=== PATIENT | female | born 1955 | race Caucasian/White ===

== ENCOUNTER 2017-02-26 08:04 | Inpatient (IN) | payer OTHER ==
[2017-02-26] MEDS ORDERED: THROMBIN (BOVINE) 20,000 UNIT VIAL TP ONE (08:23)
[2017-02-26] MEDS ORDERED: BUPIVACAINE 0.25% 30 ML SDV ONE (08:23)
[2017-02-26] MEDS ORDERED: ceFAZolin 1 GM VIAL ONE (08:24)
[2017-02-26] MEDS ORDERED: POLYMYXIN B SULFATE 500,000 UNIT/10 ML SYR IRR ONE ×2 (08:24→10:29)
[2017-02-26] MEDS ORDERED: BACITRACIN 50,000 UNITS/10 ML SYR IRR ONE ×2 (08:24→10:29)
[2017-02-26] MEDS ORDERED: HYDROmorphONE/DILAUDID 1 MG/ML INJ IVP ONE (08:35)
--- NOTE | 2017-02-26 08:35 | EDPHY ---
H & P Time Seen by Provider: 02/26/17 08:10 HPI/ROS: CHIEF COMPLAINT: Back pain, postop infection HISTORY OF PRESENT ILLNESS: 61-year-old female presents to the emergency department by private vehicle complaining of pain in her back and possible postoperative infection. The patient had a cyst removed from her lumbar spine [address] Ayala. She began having pain in her low back over last 2 days. She had a fever last night of 101. She saw Dr. Ayala this morning who is planning on taking her to the operating room for incision and drainage. She has breath or some preoperative paperwork. She had dinner last evening at 6 :00 p.m. and had water at 9:30 p.m.. She has been NPO all day today. She complains of severe pain in her back especially with movement. No abdominal pain. No vomiting. She did not take any medications and specifically no antipyretics today. No vomiting. No diarrhea. REVIEW OF SYSTEMS: Constitutional: Fever as above. Eyes: No double or blurry vision. ENT: No sore throat. Respiratory: No cough, no shortness of breath. Cardiac: No chest pain. Gastrointestinal: No abdominal pain, vomiting or diarrhea. Genitourinary: No dysuria. Musculoskeletal: Back pain as above. No neck pain. Skin: No rashes. Neurological: No headache. Past Medical/Surgical History: Cyst removal lumbar spine by Dr. Ayala January of 2017 Social History: and lives in [place] Smoking Status: Never smoked Physical Exam: General Appearance: Alert, moderate distress. Afebrile. Diaphoretic. 135/88 Eyes: Pupils equal and round. Extraocular motions are all intact. ENT: Mouth: Mucous membranes moist. Respiratory: No wheezing, rhonchi, or rales, lungs are clear to auscultation. Cardiovascular: Regular rate and rhythm. Tachycardic. Gastrointestinal: Abdomen is soft and nontender, no masses, no rebound or guarding, bowel sounds normal. Neurological: Alert and oriented x 3, cranial nerves II through XII grossly intact Skin: Patient has midline incision in lumbar spine with tamara present. There is surrounding redness and warmth. Diffusely tender to palpate. There is small purulent drainage on the bandage noted. Warm and dry, no rashes. Musculoskeletal: Tender to palpate along the lumbar spine over surgical incision. Nontender to palpate over thoracic or cervical spine. Her neck is supple. Extremities: Full range of motion and no peripheral edema. Psychiatric: Patient is oriented X 3, there is no agitation. Constitutional: Initial Vital Signs Temperature (C) 36.5 C 02/26/17 08:07 Heart Rate 116 H 02/26/17 08:07 Respiratory Rate 16 02/26/17 08:07 Blood Pressure 135/88 H 02/26/17 08:07 O2 Sat (%) 93 02/26/17 08:07 O2 Delivery Mode Room Air O2 (L/minute) 2 Allergies/Adverse Reactions: No Known Allergies Allergy (Unverified 02/26/17 08:06) Home Medications: Medication Instructions Recorded Atorvastatin Calcium [Lipitor 20 20 mg PO DAILY 02/26/17 mg (*)] Codeine/Butalbit/Acetamin/Caff 1 - 2 tab PO Q6 PRN 02/26/17 [Fioricet-Cod 80-18-321-40 Cap] Diazepam [Valium 5 MG (*)] 5 mg PO TID PRN 02/26/17 Escitalopram Oxalate [Lexapro] 20 mg PO DAILY 02/26/17 Herbals/Supplements -Info Only 1 ea PO DAILY 02/26/17 Hydrocodone/APAP 5/325 [Madison 1 - 2 tab PO Q6H PRN 02/26/17 5/325 (*)] Omeprazole [Prilosec 20 mg] 20 mg PO DAILY PRN 02/26/17 oxyCODONE/APAP 5/325 [Percocet 1 - 2 tab PO Q6H PRN 02/26/17 5/325 (*)] Medical Decision Making ED Course/Re-evaluation: 61-year-old female presents to the emergency department for laboratory studies and preop. She is scheduled for incision and drainage in the OR by Dr. Ayala at 9:00 a.m.. The patient was kept NPO. She was kept on a monitor. Patient was given 0.5 mg of IV Dilaudid. Dr. Ayala had ordered CBC, hemoglobin A1c, CRP and ESR. The patient is awaiting surgery at 9:00 a.m.. Differential Diagnosis: Including but not limited to sepsis, epidural abscess, cellulitis, wound infection - Data Points Laboratory Results: Laboratory Results 02/26/17 08:30 02/26/17 08:30 02/26/17 02/26/17 02/26/17 08:30 08:30 08:30 WBC 8.14 10^3/uL 10^3/uL (3.80-9.50) RBC 4.54 10^6/uL 10^6/uL (4.18-5.33) Hgb 14.7 g/dL g/dL (12.6-16.3) Hct 44.1 % % (38.0-47.0) MCV 97.1 fL fL (81.5-99.8) MCH 32.4 pg pg (27.9-34.1) MCHC 33.3 g/dL g/dL (32.4-36.7) RDW 12.1 % % (11.5-15.2) Plt Count 206 10^3/uL 10^3/uL (150-400) MPV 8.5 fL L fL (8.7-11.7) Neut % (Auto) 84.2 % H % (39.3-74.2) Lymph % (Auto) 9.7 % L % (15.0-45.0) Frederick % (Auto) 5.2 % % (4.5-13.0) Eos % (Auto) 0.2 % L % (0.6-7.6) Baso % (Auto) 0.2 % L % (0.3-1.7) Nucleat RBC Rel Count 0.0 % % (0.0-0.2) Absolute Neuts (auto) 6.85 10^3/uL H 10^3/uL (1.70-6.50) Absolute Lymphs (auto) 0.79 10^3/uL L 10^3/uL (1.00-3.00) Absolute Monos (auto) 0.42 10^3/uL 10^3/uL (0.30-0.80) Absolute Eos (auto) 0.02 10^3/uL L 10^3/uL (0.03-0.40) Absolute Basos (auto) 0.02 10^3/uL 10^3/uL (0.02-0.10) Absolute Nucleated RBC 0.00 10^3/uL 10^3/uL (0-0.01) Immature Gran % 0.5 % % (0.0-1.1) Immature Gran # 0.04 10^3/uL 10^3/uL (0.00-0.10) ESR 19 MM/HR MM/HR (0-30) Sodium 140 mEq/L mEq/L (134-144) Potassium 4.3 mEq/L mEq/L (3.5-5.2) Chloride 103 mEq/L mEq/L (97-110) Carbon Dioxide 24 mEq/l mEq/l (22-31) Anion Gap 13 mEq/L mEq/L (8-16) BUN 11 mg/dL mg/dL (7-23) Creatinine 0.9 mg/dL mg/dL (0.6-1.0) Estimated GFR > 60 Glucose 148 mg/dL H mg/dL (70-100) Hemoglobin A1c Pending Estim Average Glucose Pending Calcium 10.4 mg/dL mg/dL (8.5-10.4) C-Reactive Protein 181.2 mg/L H mg/L (<10.0) Medications Given: Vancomycin/Sodium Chloride (Vancomycin 1 Gm (Premix)) 250 mls @ 250 mls/hr IV Q8H [facility] Stop: 03/28/17 17:59 Last Admin: 02/26/17 17:21 Dose: 250 mls Methocarbamol (Robaxin) 750 mg PO QID PRN PRN Reason: Spasms Stop: 08/25/17 11:14 Last Admin: 02/26/17 17:32 Dose: 750 mg Oxycodone HCl (Oxycodone Ir) 5 - 10 mg PO Q4HRS PRN PRN Reason: Pain, Severe Able to Take PO Stop: 03/08/17 11:14 Last Admin: 02/26/17 16:58 Dose: 5 mg Discontinued Medications Bacitracin (Bacitracin Syringe) Confirm Administered Dose 150,000 units IRR .STK -MED ONE Stop: 02/26/17 08:25 Last Admin: 02/26/17 10:05 Dose: 150,000 units Bacitracin (Bacitracin Syringe) Confirm Administered Dose 50,000 units IRR .STK- MED ONE Stop: 02/26/17 10:30 Last Admin: 02/26/17 13:02 Dose: Not Given Bupivacaine HCl (Sensorcaine 0.25% Sdv) Confirm Administered Dose 30 ml .ROUTE .STK-MED ONE Stop: 02/26/17 08:24 Last Admin: 02/26/17 10:14 Dose: 20 ml Cefazolin Sodium (Ancef) Confirm Administered Dose 2 gm .ROUTE .STK-MED ONE Stop: 02/26/17 08:25 Last Admin: 02/26/17 10:14 Dose: Not Given Cefazolin Sodium (Ancef Syringe) Confirm Administered Dose 2 gm .ROUTE .STK-MED ONE Stop: 02/26/17 09:12 Last Admin: 02/26/17 10:15 Dose: Not Given Fentanyl (Sublimaze) 25 - 100 mcg IVP Q5M PRN PRN Reason: PACU, IMMEDIATE Pain control Stop: 02/26/17 12:13 Last Admin: 02/26/17 12:05 Dose: 50 mcg Hydromorphone HCl (Dilaudid) 0.5 mg IVP EDNOW ONE Stop: 02/26/17 08:36 Last Admin: 02/26/17 08:39 Dose: 0.5 mg Vancomycin HCl 1.5 gm/ Sodium (Chloride) 250 mls @ 166.67 mls/hr IV ONCE ONE PRN Reason: Protocol Stop: 02/26/17 10:40 Last Admin: 02/26/17 10:14 Dose: 250 mls Midazolam HCl (Versed) 2 mg IVP ONCALL ONE Stop: 02/26/17 09:09 Last Admin: 02/26/17 09:32 Dose: 2 mg Midazolam HCl (Versed) 2 mg IVP ONCALL ONE Stop: 02/26/17 11:14 Last Admin: 02/26/17 11:10 Dose: 2 mg Polymyxin B Sulfate (Polymyxin B Syringe) Confirm Administered Dose 1,500,000 unit IRR .STK-MED ONE Stop: 02/26/17 08:25 Last Admin: 02/26/17 10:04 Dose: 1,500,000 unit Polymyxin B Sulfate (Polymyxin B Syringe) Confirm Administered Dose 500,000 unit IRR .STK-MED ONE Stop: 02/26/17 10:30 Last Admin: 02/26/17 13:04 Dose: Not Given Thrombin (Thrombin-Jmi) Confirm Administered Dose 20,000 unit TP .STK-MED ONE Stop: 02/26/17 08:24 Last Admin: 02/26/17 10:18 Dose: 20,000 unit Departure - Departure Disposition: [facility] Inpatient Acute Clinical Impression: Lumbar wound infection Condition: Good
[2017-02-26 08:42] LABS: % IMMATURE GRANULYOCYTES 0.5 % (0.0-1.1); ABSOLUTE IMMATURE GRANULOCYTES 0.04 10^3/uL (0.00-0.10); ADD DIFF? NO; ADD MORPH? NO; ADD SCAN? NO; ATYPICAL LYMPHOCYTE FLAG 0 (0-99); FRAGMENT RBC FLAG 0 (0-99); HEMATOCRIT 44.1 % (38.0-47.0); HEMOGLOBIN 14.7 g/dL (12.6-16.3); LEFT SHIFT FLG 0 (0-99); LIPEMIA HEMOLYSIS FLAG 80 (0-99); MEAN CELL HEMOGLOBIN 32.4 pg (27.9-34.1); MEAN CELL HEMOGLOBIN CONCENTR. 33.3 g/dL (32.4-36.7); MEAN CELL VOLUME 97.1 fL (81.5-99.8); MEAN PLATELET VOLUME 8.5 fL (8.7-11.7); PLATELET CLUMPS FLAG 10 (0-99); PLATELET COUNT 206 10^3/uL (150-400); RED BLOOD CELL COUNT 4.54 10^6/uL (4.18-5.33); RED CELL DISTRIBUTION WIDTH 12.1 % (11.5-15.2)
[2017-02-26 08:59] LABS: ANION GAP 13 mEq/L (8-16); CALCIUM 10.4 mg/dL (8.5-10.4); CARBON DIOXIDE 24 mEq/l (22-31); CHLORIDE 103 mEq/L (97-110); CREATININE 0.9 mg/dL (0.6-1.0); GLOMERULAR FILTRATION RATE > 60; GLUCOSE 148 mg/dL (70-100); POTASSIUM 4.3 mEq/L (3.5-5.2); SODIUM 140 mEq/L (134-144)
[2017-02-26] MEDS ORDERED: MIDAZOLAM 2 MG/2 ML VIAL IVP ONE ×2 (09:08→11:13)
[2017-02-26] MEDS ORDERED: VANCOMYCIN 1.5 GM in NS 250 ML IV ONE (09:11)
[2017-02-26] MEDS ORDERED: ceFAZolin 1 GM/5 ML SYR ONE (09:11)
[2017-02-26] MEDS ORDERED: ceFAZolin 2 GM/SWFI 20 ML SYR IVP ONE (09:14)
--- NOTE | 2017-02-26 09:16 | PDANEPAE ---
ANE History of Present Illness i&d back ANE Past Medical History - Cardiovascular History Hx Hypertension: No Hx Arrhythmias: No Hx Chest Pain: No Hx Coronary Artery / Peripheral Vascular Disease: No Hx CHF / Valvular Disease: No Hx Palpitations: No - Pulmonary History Hx COPD: No Hx Asthma/Reactive Airway Disease: No Hx Recent Upper Respiratory Infection: No Hx Oxygen in Use at Home: No Hx Sleep Apnea: Yes - Neurologic History Hx Cerebrovascular Accident: No Hx Dementia: No - Endocrine History Hx Diabetes: No - Renal History Hx Renal Disorders: No - Liver History Hx Hepatic Disorders: No - Surgical History Prior Surgeries: back ANE Review of Systems Review of Systems: - Exercise capacity METS (RN): 3 METS ANE Patient History - Allergies Allergies/Adverse Reactions: No Known Allergies Allergy (Unverified 02/26/17 08:06) - Home Medications Home Medications: Anti Anxiety Medication 02/26/17 [Last Taken Unknown] Cholesterol Med 02/26/17 [Last Taken Unknown] [employer] Caplet 02/26/17 [Last Taken Unknown] - NPO status NPO Since - Liquids (Date): 02/25/17 NPO Since - Liquids (Time): 21:30 NPO Since - Solids (Date): 02/25/17 NPO Since - Solids (Time): 18:30 - Anes Hx Anes Hx: no prior problems - Smoking Hx Smoking Status: Never smoked ANE Labs/Vital Signs - Labs Result Diagrams: 02/26/17 08:30 02/26/17 08:30 - Vital Signs Blood Pressure: 127/80 Heart Rate: 90 Respiratory Rate: 18 O2 Sat (%): 95 Height: 167.64 cm Weight: 102.058 kg ANE Physical Exam - Airway Mallampati Score: Class 2 Mouth exam: normal dental/mouth exam - Pulmonary Pulmonary: no respiratory distress - Cardiovascular Cardiovascular: regular rate and rhythym - ASA Status ASA Status: II ANE Anesthesia Plan Anesthesia Plan: general endotracheal anesthesia
[2017-02-26 09:19] LABS: C-REACTIVE PROTEIN 181.2 mg/L (<10.0)
[2017-02-26] MEDS ORDERED: LIDOCAINE 2% 5 ML SDV ONE (09:21)
[2017-02-26] MEDS ORDERED: ROCURONIUM 50 MG/5 ML VIAL ONE ×2 (09:21→10:07)
[2017-02-26] MEDS ORDERED: ONDANSETRON 4 MG/2 ML VIAL ONE (09:21)
[2017-02-26] MEDS ORDERED: fentaNYL 100 MCG/2 ML INJ ONE ×3 (09:21→12:05)
[2017-02-26] MEDS ORDERED: KETOROLAC 30 MG/1 ML SDV ONE (09:21)
[2017-02-26] MEDS ORDERED: DEXAMETHASONE 4 MG/ML VIAL ONE (09:21)
[2017-02-26] MEDS ORDERED: PROPOFOL 200 MG/20 ML VIAL ONE (09:22)
[2017-02-26] MEDS ORDERED: MIDAZOLAM 2 MG/2 ML VIAL ONE ×2 (09:28→11:10)
--- NOTE | 2017-02-26 09:32 | GHP ---
[f rep st] PREOP HISTORY AND PHYSICAL DATE OF ADMISSION: 02/26/2017 HISTORY: The patient is a pleasant 61-year-old woman who is now 2 weeks and 2 days status post a rig ht-sided L4 hemilaminectomy with right-sided L4-5 synovial facet joint cyst excision as an outpatient procedure. Patient had been doing very well and had full resolution of her right lower extremity pa in. I was called yesterday, and the patient stated that for the last couple of days she had been hav ing increasing incisional pain, erythema, and some drainage in her wound. She was seen early this mo rning and has been n.p.o. since 9:30 last night. She has been having some chills, but no fevers. Amy alcala has loss of appetite and increased incisional pain; however, the presurgical right lower extremity pain has not returned. On exam, she was found to have a wound infection and is being admitted for an incision, irrigation, and debridement of the lumbar wound and IV antibiotics with infectious disease consultation. Patient denies any loss of bowel or bladder control. SOCIAL HISTORY: Negative for tobacco. She uses alcohol occasionally. FAMILY HISTORY: Cancer. PAST MEDICAL HISTORY: Hypercholesterolemia, migraine headaches, anxiety, sleep apnea, and obesity. PAST SURGICAL HISTORY: Significant for the aforementioned right L4 hemilaminectomy and right L4-5 sy novial facet joint cyst excision, as well as a left finger arthrodesis. ALLERGIES: To medications are none. MEDICATIONS: Percocet, Valium, atorvastatin, clonazepam, CPAP, and escitalopram. PHYSICAL EXAM: VITAL SIGNS: Temperature is 36.5. Patient's pulse is 116, and blood pressure is 135 /88 with respirations of 16 per minute, and oxygen saturation of 93%. GENERAL: She is alert and candido ented x3. She is in obvious discomfort. CARDIAC: Regular rate and rhythm without detectable murmur , rub or gallop. LUNGS: Clear to auscultation. ABDOMEN: Benign with good bowel sounds throughout. NEUROLOGIC: Strength of bilateral lower extremities 5/5 throughout. She has no evidence of footdr op. She does have normal light touch sensation, and straight leg raising is negative compared to pre operatively, when it was positive. SKIN: Her lumbar wound is very erythematous. She has a few drop s of purulence emanating from the wound, and it is exceedingly tender to palpation. The tamara are intact. IMAGING: No radiographic studies have been ordered. IMPRESSION: 1. Two weeks and 2 days status post right L4 hemilaminectomy with right L4-[address] excision for sciatica. 2. Postoperative lumbar wound infection. PLAN: The patient has been n.p.o. since 9:30 last night. She has a lumbar wound infection and requi res an incision, irrigation, and debridement of the lumbar wound under general anesthesia. No antibi otics have been given. Labs have been ordered and are pending, including a CBC, sedimentation rate, and C-reactive protein as well as hemoglobin A1c. Infectious disease consultation will be obtained o nce cultures have been obtained intraoperatively, and IV antibiotics will obviously be necessary with likely a PICC line being placed once blood cultures are normal, which will also be ordered. Potenti al risks, benefits, and possible complications have been thoroughly discussed with the patient includ ing, but not limited to, sepsis, dural tear, meningitis, need for further surgery including repeat I and D's, need for fusion, DVT, PE, pneumonia, stroke, heart attack, hemorrhage, blindness, and . Patient's questions have been answered thoroughly in addition to her 's questions. As mentmil lizzygabriel, she has been n.p.o. for greater than 8 hours. /[id number]/MODL
[2017-02-26] MEDS ORDERED: SUCCINYLCHOLINE CHLORIDE*ANESTHESIA ONLY*200 MG/10 ML SYR IVP ONE (09:39)
[2017-02-26 09:45] LABS: SEDIMENTATION RATE 19 MM/HR (0-30)
[2017-02-26] MEDS ORDERED: PHENYLEPHRINE HCL 100 MCG/ML SYR ONE (09:46)
[2017-02-26] MEDS ORDERED: PHENYLEPHRINE 10 MG/ML SDV ONE (10:03)
[2017-02-26] MEDS ORDERED: SUGAMMADEX SODIUM 200 MG/2 ML VIAL IVP ONE (10:37)
[2017-02-26] MEDS ORDERED: ALBUTEROL 3 ML DEYVIAL IH PRN (11:13)
[2017-02-26] MEDS ORDERED: NALOXONE HCL 0.4 MG/ML INJ IVP PRN (11:13)
[2017-02-26] MEDS ORDERED: MEPERIDINE 25 MG/ML SYR IVP PRN (11:13)
[2017-02-26] MEDS ORDERED: fentaNYL 100 MCG/2 ML INJ IVP PRN (11:13)
[2017-02-26] MEDS ORDERED: ONDANSETRON 4 MG/2 ML VIAL IVP PRN ×2 (11:13→11:15)
[2017-02-26] MEDS ORDERED: LR 500 ML IV PRN (11:13)
--- NOTE | 2017-02-26 11:14 | POSTANESTH ---
Post Anesthetic Evaluation Cardiovascular Status: Normal, Stable Respiratory Status: Normal, Stable Level of Consciousness/Mental Status: Can Participate in Eval Pain Control: Adequate, Prn Tx Ordered Nausea/Vomiting Control: Adequate, Prn Tx Ordered Complications Possibly Related to Anesthesia: None Noted
[2017-02-26] MEDS ORDERED: NS W/ 20 KCl/L 1,000 ML IV SCH (11:15)
[2017-02-26] MEDS ORDERED: BISACODYL 10 MG SUPP PR PRN (11:15)
[2017-02-26] MEDS ORDERED: LACTULOSE 20 GM/30 ML UDCUP PO PRN (11:15)
[2017-02-26] MEDS ORDERED: ONDANSETRON DISINTEGRATING 4 MG TAB PO PRN (11:15)
[2017-02-26] MEDS ORDERED: MAGNESIUM HYDROXIDE 30 ML UDCUP PO PRN (11:15)
[2017-02-26] MEDS ORDERED: ZOLPIDEM TARTRATE 5 MG TAB PO PRN (11:15)
[2017-02-26] MEDS ORDERED: HYDROmorphONE/DILAUDID 1 MG/ML INJ IVP PRN (11:15)
--- NOTE | 2017-02-26 11:26 | PDHPUP ---
History & Physical Update H&P update statement: This history and physical update is based on an assessment of the patient which was completed after admission or registration (within 24 hours), but prior to the surgery/procedure. H&P update: H&P reviewed & patient examined, no change in patient's condition since H&P completed
--- NOTE | 2017-02-26 11:30 | POSTOPPROG ---
Post Op Note Date of Operation: 02/26/17 Surgeon: Lala Ayala Anesthesiologist: MD Artem Anesthesia: GET(General Endotracheal) Pre-op Diagnosis: 2 wks s/p R L4-5 facet cyst excision with lumbar wound infxn Post-op Diagnosis: same Indication: lumbar wound infection Procedure: I and D lumbar wound L4-5 Findings: [id number] cc purulence superficial and deep to fascia. Inf/Abcess present in the surg proc area at time of surgery?: Yes Depth: Deep Incisional (Fascial) EBL: 25 cc Complications: None. Drains: Hema Solorzano Specimen(s): 2 aerobic and anaerobic cxs with fungus, and tissue for TB.
[2017-02-26] MEDS ORDERED: HYDROmorphone HCL/NS/PF 0.4 MG/2 ML SYR IVP PRN (12:57)
[2017-02-26] MEDS: oxyCODONE IR 5 MG TAB PO PRN ×3 (13:09→16:58)
[2017-02-26] MEDS: METHOCARBAMOL 750 MG TAB PO PRN ×2 (13:09→17:32)
[2017-02-26] MEDS: VANCOMYCIN HCL/NORMAL SALINE 250 ML IV SCH (17:21)
[2017-02-26] MEDS: SENNOSIDES/DOCUSATE SODIUM TAB PO SCH (21:32)
[2017-02-26] MEDS: FAMOTIDINE 20 MG TAB PO SCH (21:32)
[2017-02-26] MEDS: DIAZEPAM 5 MG TAB PO PRN (21:32)
[2017-02-26] MEDS: morphINE SR 15 MG TAB PO SCH (21:32)
[2017-02-26] MEDS: HYDROCODONE/APAP 5/325 TAB PO PRN (21:34)
--- NOTE | 2017-02-26 22:30 | GOP ---
[f rep st] OPERATIVE REPORT DATE OF OPERATION: 02/26/2017 SURGEON: Lala Erickson MD ANESTHESIA: General endotracheal intubation. ANESTHESIOLOGIST: Mao Mcgill MD PREOPERATIVE DIAGNOSIS: 1. Two weeks status post right L4-5 synovial facet cyst excision and right L4 hemilaminectomy. 2. Lumbar wound infection. POSTOPERATIVE DIAGNOSIS: 1. Two weeks status post right L4-5 synovial facet cyst excision and right L4 hemilaminectomy. 2. Lumbar wound infection. PROCEDURE PERFORMED: Incision, irrigation and debridement of posterior lumbar wound infection, L4-5. FINDINGS: Approximately 75 cc of gross purulence both superficial and deep to the lumbar fascial lay er. There was no evidence of bone infection or epidural abscess. ESTIMATED BLOOD LOSS: 25 cc. INDICATIONS: The patient is a pleasant 61-year-old woman who is now 2 weeks and 2 days status post a right L4 hemilaminectomy and right L4-5 synovial facet joint cyst excision for sciatic nerve pain. Her surgery went well and postoperatively she noted complete resolution of her right lower extremity pain. However, approximately 3 days ago the patient began having increasing incisional pain and drai nage from her wound. She has been n.p.o. since yesterday at 9:30 p.m. On exam, she was found to hav e significant erythema and drainage including purulence from her lumbar wound. She was also tachycar dic. Per my recommendation, patient has elected to undergo surgery to address a lumbar wound infecti on. No guarantees were given in regard to surgical outcome. Potential risks, benefits, and possible complications were thoroughly discussed, including, but not limited to, dural tear with CSF leak, me ningitis, nerve root injury, partial or complete paralysis, continued infection, need for further tati elizabeth, meningitis, DVT, PE, pneumonia, stroke, heart attack, hemorrhage, blindness, and . DESCRIPTION OF PROCEDURE: After obtaining both written and verbal consent from the patient, she was brought to the operating room where she underwent general endotracheal intubation. The patient did n ot receive IV antibiotics prior to surgery and these were held until cultures were obtained. After i ntubation, the patient was rolled to the prone position on the Seth frame. All 4 extremities were padded well. The face and eyes were padded per the anesthesiologist. The lumbar spine was prepped a nd draped in the normal sterile fashion. A timeout was performed with the entire operating room team , confirming the patient's name, date of , planned surgical procedure including levels, and evens rgies to medications. The lumbar spine had been prepped and draped in the normal sterile fashion and the tamara had been r emoved. A 10-blade knife was used to create a midline incision through the previous lumbar wound. I mmediately purulence emanated from the wound and was cultured and sent for aerobic, anaerobic, and fu ngal cultures, and labeled superficial wound, lumbar spine. A significant amount of purulence emanat ed from the wound, which was cleaned up using Ray-Tecs. The deep fascial layer was opened up by sandra ving the sutures and there was also purulence deep to the fascial layer. In total, about 75 cc of pu rulence was identified both superficial and deep to the fascial layer. A second set of cultures labe led deep lumbar wound were taken deep to the fascia. The wound was irrigated and soft tissue was rem andrea and sent as specimen for TB. Then, the patient received 1.5 g of vancomycin IV per the anesthes iologist. The epidural space was visualized through loupe magnification and did not show infection n or did the lamina around the previous surgery show any sign of infection. Furthermore, the soft tiss ues were actually quite pink with only minimal debridement necessary to get back to good bleeding tis steff. There was no evidence of spinal fluid leakage. A 1 x 1 alverto and Gelfoam were placed over the dura and then at this time, 3 L of normal saline mixed with bacitracin and polymyxin were pulse lavag ed throughout the entire depth of the wound and circumferentially to clean it out. The alverto was rem andrea. Gloves were changed by the entire operating room team. New clean instruments were then used. The rest that had been previously contaminated were passed off. Then, using normal saline mixed wit h bacitracin bulb irrigation, the wound was again irrigated and hemostasis was obtained with bipolar cautery and thrombin-soaked Gelfoam. No pockets of purulence were identified. All of the visualized purulence had been removed. The soft tissues, as mentioned, were quite pink and moist and showed go od bleeding. Gelfoam was placed over the dura. This was then removed once hemostasis was obtained. A 10 flat KAROLYN drain was placed deep to the fascial layer. The drain was sewn in with a 2-0 nylon sut ure at the skin level. A #1 Vicryl was then used to try and close the deep fascia, but due to the pa tient's large size and depth of wound as well as friable tissues, this was only closed loosely. Then , the subcutaneous tissues were closed using an 0 undyed Vicryl on a CT-2 cutter. Then, the skin was approximated using a 2-0 nylon in a single interrupted fashion. 20 mL of 0.25% Marcaine without epi nephrine was infiltrated into the subcutaneous tissues for additional postoperative pain control. Th e wound was covered using 4 x 4 gauze and Medipore tape. The drain was connected to the bulb suction . The patient's back brace was placed. She was then rolled to the supine position, extubated in the operating room, and brought to the recovery room in satisfactory condition. DRAINS: One #10 flat KAROLYN drain. POSTOPERATIVE PLAN: Close neurologic observation, close airway observation, infectious disease consu ltation with IV antibiotics and blood cultures are pending, PT, OT, and pain control. /[id number]/MODL
[2017-02-27] MEDS: VANCOMYCIN HCL/NORMAL SALINE 250 ML IV SCH ×3 (03:05→18:44)
[2017-02-27] MEDS: METHOCARBAMOL 750 MG TAB PO PRN ×2 (05:20→21:19)
[2017-02-27] MEDS: HYDROCODONE/APAP 5/325 TAB PO PRN (05:20)
[2017-02-27] MEDS: SENNOSIDES/DOCUSATE SODIUM TAB PO SCH ×2 (09:31→21:19)
[2017-02-27] MEDS: morphINE SR 15 MG TAB PO SCH ×2 (09:31→21:19)
[2017-02-27] MEDS: FAMOTIDINE 20 MG TAB PO SCH ×2 (09:31→21:19)
--- NOTE | 2017-02-27 09:59 | ASMTCMCOM ---
CM Note CM Note Notes: Chart reviewed. Pt s/p lumbar surgery and developed infection. Therapies pending. Needs to be detrmined. Date Signed: 02/27/2017 09:59 AM Electronically Signed By:Shannon Arteaga RN
[2017-02-27] MEDS: oxyCODONE IR 5 MG TAB PO PRN ×2 (11:31→14:30)
--- NOTE | 2017-02-27 13:32 | GCON ---
[f rep st] CONSULTATION INFECTIOUS DISEASE CONSULTATION. REASON FOR CONSULTATION: Postoperative infection. HISTORY OF PRESENT ILLNESS: A 61-year-old healthy woman, who underwent a right L4, L5 synovial facet cyst excision and right hemilaminectomy 02/10/2017, for chronic right lower extremity pain. The pat chris reports a remarkable immediate improvement in her right lower extremity postoperatively, and was initially doing well until February 23, 2017, in which she developed increasing pain at the incision and reported that the incision looked abnormal with some drainage. She also described associated mal aise and myalgia. She subsequently developed a fever to 102, and presented to the hospital on 2016, per Dr. Ayala's recommendation, for washout. She was taken to the OR on the same day, and 75 cc of gross purulence was identified, both superficially and deep, and was cleaned out. Notably, no bone or epidural involvement was noted. Today, the patient states significant improvement in her incisional pain compared to preoperatively. No further fevers have been documented. Postoperativel y, patient was started on IV vancomycin, and patient denies any side effects related to the antibioti c to date. PAST MEDICAL/SURGICAL HISTORY: 1. Hyperlipidemia. 2. Cyst removal L4, L5, hemilaminectomy as per HPI. 3. She had a right 5th finger knuckle replacement. SOCIAL HISTORY: Patient is a [place]. She works in [employer] and sits all day long. No to [employer]. She is and lives with her locally. She occasionally has alcohol. FAMILY HISTORY: Positive for Alzheimer's in her father. ALLERGIES: NKDA. MEDICATIONS: Vancomycin 1 g IV q.8. She is also on Pepcid 20 mg twice daily, and the following p.r. n. medicines including [place] 5/325, Dulcolax, Valium, Benadryl, hydromorphone, lactulose, Robaxin, mo rphine, and scheduled MS Contin 15 mg twice daily. REVIEW OF SYSTEMS: A complete 10-point review of systems was performed and is negative except as men tioned in the HPI. PHYSICAL EXAMINATION: VITAL SIGNS: Blood pressure 102/71, heart rate 66, respiratory rate 14, satur ation 100% on 2 L, temperature 36.8. She has been afebrile since hospitalization. GENERAL: This is a very pleasant, nontoxic-appearing woman lying in bed in no acute distress. HEENT: Pupils are bhavya ctive bilaterally. No conjunctival hemorrhages. Oropharynx with moist mucous membranes. Fair denti tion. NECK: Supple. No lymphadenopathy. CARDIOVASCULAR: Regular rate. No murmurs. CHEST: Petra r to auscultation bilaterally. ABDOMEN: Obese, soft, nontender. Bowel sounds are present. BACK: Dressing was in place, with KAROLYN with serosanguineous fluid. There was no strike-through of drainage o n the dressing. Mild tenderness to palpation. EXTREMITIES: Her motor was intact. She was moving b oth extremities equally. Sensory was deferred. SKIN: No rashes. She has a peripheral IV in her le ft upper arm, that is clean, dry, and intact. LABORATORY: White count 8.1, hematocrit 44, platelets of 206, 84% neutrophils. Creatinine 0.9. C-r eactive protein 181. Hemoglobin A1c pending. Microbiology: She has 3 separate specimens that were sent to the OR, all growing Staphylococcus aureus. Blood cultures from admission 02/26/2017, are no growth to date. IMAGING: None was obtained. ASSESSMENT AND PLAN: This is a 61-year-old, relatively healthy woman, who developed a postoperative infection with Staphylococcus aureus. Infection was characterized down to the deep fascia layer with out involving bone or epidural abscess. Nonetheless, would recommend intravenous antibiotics due to the critical nature of deep wound infection of the lumbar spine. Would continue intravenous vancomyc in, dose based on weight and creatinine clearance, with an expected trough around 15. A trough will be checked this afternoon, and dose will be adjusted based off this. Reviewed potential side effects related to vancomycin, including ototoxicity and renal toxicity, as well as allergy, with patient at the bedside. In addition, discussed placement of peripherally inserted central catheter line for lo ng-term intravenous antibiotics, including the side effects related to the peripherally inserted cent ral catheter line, including clot, infection, bleeding, pain, and arrhythmias. Will tentatively plan to treat patient with intravenous antibiotics for 4 to 6 weeks. Time was 65 minutes with greater th an 50% time spent with education and counseling regarding education regarding antibiotic side effects , including Clostridium difficile risk, and risks and benefits of peripherally inserted central marissa ter line placement. Thank you for this consultation. I will continue to follow her on a daily basis. /[id number]/MODL
[2017-02-27] MEDS ORDERED: BUTALBITAL PO PRN (13:45)
[2017-02-27] MEDS ORDERED: CAFFEINE PO PRN (13:45)
[2017-02-27] MEDS ORDERED: NON-FORMULARY NEW DRUG (Omeprazole [Prilosec 20 Mg] 20 MG) PO PRN (13:45)
[2017-02-27] MEDS ORDERED: ACETAMINOPHEN PO PRN (13:45)
[2017-02-27] MEDS ORDERED: [UNRECOGNIZED DRUG - OTHER] PO PRN (13:45)
[2017-02-27] MEDS ORDERED: CODEINE PO PRN (13:45)
[2017-02-27] MEDS ORDERED: PANTOPRAZOLE SODIUM 40 MG TAB PO PRN (13:48)
--- NOTE | 2017-02-27 14:23 | SOAPPROG ---
SOAP Progress Note Assessment/Plan: Assessment: post op day 1, s/p I and D lumbar spine wound L4-5. Staph Aureus. Sensitivities pending. Pt markedly improved. Cont iv abx. Once blood cx show negative, will obtain PICC line. Plan: 02/27/17 14:20 Subjective: Pt states her wound is less painful and she feels better. No nausea or emesis. Legs feel good. Objective: Vital Signs Temp Pulse Resp BP Pulse Ox 36.8 C 76 16 110/72 96 02/27/17 08:00 02/27/17 12:17 02/27/17 12:17 02/27/17 12:17 02/27/17 12:17 Microbiology 02/26/17 10:15 Gram Stain - Final Back - Tissue 02/26/17 10:15 Gram Stain - Final Back - Eswab 02/26/17 10:15 Gram Stain - Final Back - Eswab 02/26/17 10:15 Mycobacterial Smear (AMRITA) - Final Back - Tissue 02/26/17 02/27/17 02/28/17 05:59 05:59 05:59 Intake Total 3000 Output Total 400 20 Balance 2600 -20 BLE motor 5/5. SLR negative x 2. Lumbar wound with minimal serosanguinous drainage. Less edematous. No purulence. Drain functioning properly. ICD10 Worksheet Patient Problems: Problems Problem Status Onset lumbar wound infection Acute
[2017-02-27] MEDS: ACET/CAFFEINE/BUTA FIORICET 1 EACH TAB PO PRN (14:29)
[2017-02-28] MEDS: oxyCODONE IR 5 MG TAB PO PRN ×2 (05:55→20:52)
[2017-02-28] MEDS: METHOCARBAMOL 750 MG TAB PO PRN (05:56)
[2017-02-28] MEDS ORDERED: VANCOMYCIN HCL/NORMAL SALINE 250 ML IV SCH (06:00)
[2017-02-28] MEDS ORDERED: ALTEPLASE 2 MG VIAL IVP PRN (08:25)
[2017-02-28] MEDS ORDERED: NON-FORMULARY NEW DRUG (Escitalopram Oxalate [Lexapro] 20 MG) PO SCH (09:00)
[2017-02-28] MEDS: SENNOSIDES/DOCUSATE SODIUM TAB PO SCH ×2 (09:24→20:53)
[2017-02-28] MEDS: morphINE SR 15 MG TAB PO SCH ×2 (09:24→20:53)
[2017-02-28] MEDS: ESCITALOPRAM OXALATE 10 MG TAB PO SCH (09:25)
[2017-02-28] MEDS: ATORVASTATIN CALCIUM 20 MG TAB PO SCH (09:25)
[2017-02-28] MEDS: FAMOTIDINE 20 MG TAB PO SCH ×2 (09:25→20:53)
--- NOTE | 2017-02-28 10:01 | ASMTCMCOM ---
CM Note CM Note Notes: Chart reviewed. Per ID patient will need senior care ANTB. Met with patient to review dc POC. Address and phone number confirmed. Referral to [facility]. Will refer to [facility] for home health nurse. Plan home with home infusion and HHC when medically cleared for discharge. CM to follow. Date Signed: 02/28/2017 10:01 AM Electronically Signed By:Shannon Arteaga RN
--- NOTE | 2017-02-28 10:17 | PCMIDPN ---
Assessment/Plan: # MSSA deep wound infection at L4-L5 s/p debridement: Clinically improved pain. Tolerating antibiotics well. Blood cultures 02/26/2017 remain negative --DC vancomycin Staphylococcus aureus susceptibilities are known today --start cefazolin 2 g IV Q 8, will plan outpatient therapy with cefazolin 6 g IV continuous infusion for 4-6 weeks. --PICC line placement today since blood cultures are negative, risks and benefits of PICC lines were reviewed with patient --started in her agency to arrange home care knowing patient is likely not to be discharged till 03/02/2017. ID follow-up set up Medication Vancomycin 1 g IV Q 8 to vancomycin 1.25 g IV Q 12, #2 Subjective: Back pain continues to be significantly improved compared to prior to washout. Patient complaining of itching around her wound. Pulled back tape to examine wound but left existing dressing in place Objective: Vital Signs Temp Pulse Resp BP Pulse Ox 37.0 C 79 16 115/79 90 L 02/28/17 04:00 02/28/17 07:29 02/28/17 07:29 02/28/17 07:29 02/28/17 07:29 Microbiology 02/26/17 10:15 Gram Stain - Final Back - Tissue 02/26/17 10:15 Gram Stain - Final Back - Eswab 02/26/17 10:15 Gram Stain - Final Back - Eswab 02/27/17 02/28/17 03/01/17 05:59 05:59 05:59 Intake Total 3000 1000 Output Total 400 60 Balance 2600 940 ESR 19 MM/HR (0-30) 02/26/17 08:30 C-Reactive Protein 181.2 mg/L (<10.0) H 02/26/17 08:30 - Physical Exam General Appearance: alert, no apparent distress Respiratory: No accessory muscle use Extremities: No pedal edema Abdomen: non-tender, soft Back: other (KAROLYN serosanguineous drainage; incision healthy-appearing without erythema stitches in place. No rash surrounding wound) Skin: No rash Neuro/Psych: alert, normal mood/affect, oriented x 3 - Time Spent With Patient Time Spent with Patient: greater than 35 minutes (Reviewed risks and benefits of cefazolin, protocol of home IV therapy including continuous infusion and follow-up needed.) Time Spent with Patient: Greater than 35 minutes spent on this patients care, greater than 50% of time spent counseling, educating, and coordinating care regarding the above mentioned plan. ICD10 Worksheet Patient Problems: Problems Problem Status Onset lumbar wound infection Acute
--- NOTE | 2017-02-28 10:18 | PDIAF ---
- Diagnosis Diagnosis: MSSA deep wound infection L4-L5 Code Status: Full Code - Medication Management Discharge Medications: Medications to Continue on Transfer Atorvastatin Calcium [Lipitor 20 mg (*)] 20 mg PO DAILY 02/26/17 [Last Taken 01/02] Codeine/Butalbit/Acetamin/Caff [Fioricet-Cod 79-00-446-40 Cap] 1 - 2 tab PO Q6 PRN 02/26/17 [Last Taken Unknown] Diazepam [Valium 5 MG (*)] 5 mg PO TID PRN 02/26/17 [Last Taken 02/25/17] Escitalopram Oxalate [Lexapro] 20 mg PO DAILY 02/26/17 [Last Taken 02/24/17] Herbals/Supplements -Info Only 1 ea PO DAILY 02/26/17 [Last Taken Unknown] Hydrocodone/APAP 5/325 [[place] 5/325 (*)] 1 - 2 tab PO Q6H PRN 02/26/17 [Last Taken 02/25/17] Omeprazole [Prilosec 20 mg] 20 mg PO DAILY PRN 02/26/17 [Last Taken Unknown] oxyCODONE/APAP 5/325 [Percocet 5/325 (*)] 1 - 2 tab PO Q6H PRN 02/26/17 [Last Taken 02/25/17] [facility] [place] Antibiotic Stop Date: 04/08/17 Discharge Medications: Refer to the Discharge Home Medication list for PRN reason. PICC Care - Routine: Yes - Orders Services needed: Home Care, Registered Nurse Home Care Face to Face: I certify that this patient was under my care and that I had the required [id number] encounter meeting the encounter requirements on the discharge day. My findings support the fact that the patient is homebound as defined in Home Care Face to Face Continued: CMS Chapter 7 Medicare Benefits Manual 30.1.1 , The condition of the patient is such that there exists a normal inability to leave home and consequently, leaving home would require a considerable and taxing effort. - Labs/Radiology CBC w/diff Date: 03/07/17 (Weekly Tuesday) CMP Date: 03/07/17 (Weekly Tuesday) CRP Date: 03/07/17 (Weekly Tuesday) Call or Fax Lab and Imaging Results to: Jessica Cassidy MD [facility] at fax [phone] - Follow Up Care Current Providers and Referrals: Melanie Lynn NP [Primary Care Provider] - As per Instructions Jessica Cassidy MD [Medical Doctor] - 03/08/17 4:00 pm
--- NOTE | 2017-02-28 10:39 | PDIAF ---
- Diagnosis Diagnosis: MSSA deep wound infection L4-L5 Code Status: Full Code - Medication Management Discharge Medications: Medications to Continue on Transfer Atorvastatin Calcium [Lipitor 20 mg (*)] 20 mg PO DAILY 02/26/17 [Last Taken 01/02] Codeine/Butalbit/Acetamin/Caff [Fioricet-Cod [id number] Cap] 1 - 2 tab PO Q6 PRN 02/26/17 [Last Taken Unknown] Diazepam [Valium 5 MG (*)] 5 mg PO TID PRN 02/26/17 [Last Taken 02/25/17] Escitalopram Oxalate [Lexapro] 20 mg PO DAILY 02/26/17 [Last Taken 02/24/17] Herbals/Supplements -Info Only 1 ea PO DAILY 02/26/17 [Last Taken Unknown] Hydrocodone/APAP 5/325 [[place] 5/325 (*)] 1 - 2 tab PO Q6H PRN 02/26/17 [Last Taken 02/25/17] Omeprazole [Prilosec 20 mg] 20 mg PO DAILY PRN 02/26/17 [Last Taken Unknown] oxyCODONE/APAP 5/325 [Percocet 5/325 (*)] 1 - 2 tab PO Q6H PRN 02/26/17 [Last Taken 02/25/17] [place] Antibiotics: cefazolin 6gm IV continuous infusion [place] Antibiotic Stop Date: 04/08/17 Discharge Medications: Refer to the Discharge Home Medication list for PRN reason. PICC Care - Routine: Yes - Orders Services needed: Home Care, Registered Nurse Home Care Face to Face: I certify that this patient was under my care and that I had the required [id number] encounter meeting the encounter requirements on the discharge day. My findings support the fact that the patient is homebound as defined in Home Care Face to Face Continued: CMS Chapter 7 Medicare Benefits Manual 30.1.1 , The condition of the patient is such that there exists a normal inability to leave home and consequently, leaving home would require a considerable and taxing effort. - Labs/Radiology CBC w/diff Date: 03/07/17 (Weekly Tuesday) CMP Date: 03/07/17 (Weekly Tuesday) CRP Date: 03/07/17 (Weekly Tuesday) Call or Fax Lab and Imaging Results to: [facility] at fax [phone] - Follow Up Care Current Providers and Referrals: Jessica Cassidy MD [Medical Doctor] - 03/08/17 4:00 pm Melanie Lynn NP [Primary Care Provider] - As per Instructions
[2017-02-28] MEDS: ACET/CAFFEINE/BUTA FIORICET 1 EACH TAB PO PRN (13:19)
--- NOTE | 2017-02-28 13:27 | SOAPPROG ---
SOAP Progress Note Assessment/Plan: Assessment: post op day 1, s/p I and D lumbar spine wound L4-5. Staph Aureus. Sensitivities pending. Pt markedly improved. Cont iv abx. Once blood cx show negative, will obtain PICC line. Plan: 02/27/17 14:20 02/28/17 13:24 post op day 2, s/p I and D of L4-5 for deep wound infection. Pt continues to improve. Blood cultures negative and therefore, pt getting PICC line today. On Ancef. Plan: I will remove drain tomorrow and then probable discharge to home on Tue. Subjective: Pt complains of itching around wound. RLE still feels good compared with preop. Objective: Vital Signs Temp Pulse Resp BP Pulse Ox 37.0 C 92 16 122/75 H 90 L 02/28/17 12:00 02/28/17 12:00 02/28/17 12:00 02/28/17 12:00 02/28/17 12:00 Microbiology 02/26/17 10:15 Gram Stain - Final Back - Eswab 02/26/17 10:15 Gram Stain - Final Back - Tissue 02/26/17 10:15 Gram Stain - Final Back - Eswab 02/27/17 02/28/17 03/01/17 05:59 05:59 05:59 Intake Total 3000 1000 Output Total 400 60 Balance 2600 940 BLE motor 5/5. David's negative x 2. Lumbar wound looks good. Erythema in square pattern due to tape. No purulence. Drain functioning properly. ICD10 Worksheet Patient Problems: Problems Problem Status Onset lumbar wound infection Acute
[2017-02-28] MEDS: ceFAZolin 2 GM/DEXTROSE 100 ML IV SCH ×2 (14:01→20:52)
[2017-02-28 14:17] LABS: HEMOGLOBIN A1C 5.5 % (4.0-6.0)
[2017-02-28] MEDS: DIAZEPAM 5 MG TAB PO PRN (20:52)
[2017-03-01] MEDS: DIAZEPAM 5 MG TAB PO PRN (03:00)
[2017-03-01] MEDS: oxyCODONE IR 5 MG TAB PO PRN (05:04)
[2017-03-01] MEDS: ceFAZolin 2 GM/DEXTROSE 100 ML IV SCH ×3 (05:05→21:09)
[2017-03-01] MEDS: diphenhydrAMINE 25 MG CAP PO PRN ×2 (05:06→21:08)
--- NOTE | 2017-03-01 09:23 | PCMIDPN ---
Assessment/Plan: Assessment/Plan: 1. L4/5 deep wound infection secondary to MSSA: - s/p wash out on 02/26/17 - Blood cx ngtd -Currently on directly therapy with Cefazolin -picc line in place - interagency already completed and pt has f/u with Dr Khanh Ornelas ancef 2g q8- 02/28/17 Subjective: afebrile. feeling better with respect to back. drain in place with serosanguinous drainage. denies diarrhea. denies sob. Objective: Vital Signs Temp Pulse Resp BP Pulse Ox 36.7 C 74 16 111/75 96 03/01/17 08:00 03/01/17 08:00 03/01/17 08:00 03/01/17 08:00 03/01/17 08:00 Microbiology 02/26/17 10:15 Gram Stain - Final Back - Eswab 02/26/17 10:15 Gram Stain - Final Back - Tissue 02/26/17 10:15 Gram Stain - Final Back - Eswab 02/28/17 03/01/17 03/02/17 05:59 05:59 05:59 Intake Total 1000 1800 450 Output Total 60 35 Balance 940 1765 450 ESR 19 MM/HR (0-30) 02/26/17 08:30 C-Reactive Protein 181.2 mg/L (<10.0) H 02/26/17 08:30 - Physical Exam General Appearance: alert, no apparent distress Respiratory: lungs clear Cardiac/Chest: regular rate, rhythm Abdomen: normal bowel sounds, non-tender, soft ICD10 Worksheet Patient Problems: Problems Problem Status Onset lumbar wound infection Acute
[2017-03-01] MEDS: FAMOTIDINE 20 MG TAB PO SCH ×2 (09:24→21:09)
[2017-03-01] MEDS: ATORVASTATIN CALCIUM 20 MG TAB PO SCH (09:24)
[2017-03-01] MEDS: ESCITALOPRAM OXALATE 10 MG TAB PO SCH (09:24)
[2017-03-01] MEDS: SENNOSIDES/DOCUSATE SODIUM TAB PO SCH ×2 (09:24→21:09)
[2017-03-01] MEDS: POLYETHYLENE GLYCOL 3350 17 GM PKT PO PRN (09:24)
[2017-03-01] MEDS: morphINE SR 15 MG TAB PO SCH (09:24)
[2017-03-01] MEDS: ACET/CAFFEINE/BUTA FIORICET 1 EACH TAB PO PRN (09:29)
[2017-03-01] MEDS: METHOCARBAMOL 750 MG TAB PO PRN (09:29)
--- NOTE | 2017-03-01 10:13 | ASMTCMCOM ---
CM Note CM Note Notes: Updates to infusion and HHC. Picc placed. Plan is to dc tomorrow if medically stable with home infusion and [facility] RN. CM to follow. Date Signed: 03/01/2017 10:12 AM Electronically Signed By:Shannon Arteaga RN
--- NOTE | 2017-03-01 16:48 | SOAPPROG ---
SOAP Progress Note Assessment/Plan: Assessment: post op day 1, s/p I and D lumbar spine wound L4-5. Staph Aureus. Sensitivities pending. Pt markedly improved. Cont iv abx. Once blood cx show negative, will obtain PICC line. Plan: 02/27/17 14:20 02/28/17 13:24 post op day 2, s/p I and D of L4-5 for deep wound infection. Pt continues to improve. Blood cultures negative and therefore, pt getting PICC line today. On Ancef. Plan: I will remove drain tomorrow and then probable discharge to home on 03/01/17 16:45 post op day 3 s/p I and D L4-5 wound for deep infection with Staph Aureus. PICC line in. Pt doing well. Plan: drain removed. Will examine wound tomorrow and if good, will d/c pt to home. Subjective: Pt states she feels well. No leg pain. Wants to wean down on pain meds. Objective: Vital Signs Temp Pulse Resp BP Pulse Ox 36.7 C 87 16 131/86 H 93 03/01/17 15:27 03/01/17 15:27 03/01/17 15:27 03/01/17 15:27 03/01/17 15:27 Microbiology 02/26/17 10:15 Gram Stain - Final Back - Tissue 02/26/17 10:15 Gram Stain - Final Back - Eswab 02/26/17 10:15 Gram Stain - Final Back - Eswab 02/26/17 10:15 Mycobacterial Smear (AMRITA) - Final Back - Tissue 02/28/17 03/01/17 03/02/17 05:59 05:59 05:59 Intake Total 1000 1800 450 Output Total 60 35 Balance 940 1765 450 BLE motor 5/5. NVI. Lumbar wound: clean and only erythema is due to tape irritation. Drain removed without difficulty. ICD10 Worksheet Patient Problems: Problems Problem Status Onset lumbar wound infection Acute
[2017-03-02] MEDS: METHOCARBAMOL 750 MG TAB PO PRN ×4 (02:16→18:04)
[2017-03-02] MEDS: oxyCODONE IR 5 MG TAB PO PRN (02:16)
[2017-03-02] MEDS: ceFAZolin 2 GM/DEXTROSE 100 ML IV SCH ×2 (05:45→13:24)
[2017-03-02] MEDS: POLYETHYLENE GLYCOL 3350 17 GM PKT PO PRN (09:00)
[2017-03-02] MEDS: SENNOSIDES/DOCUSATE SODIUM TAB PO SCH (09:01)
[2017-03-02] MEDS: ESCITALOPRAM OXALATE 10 MG TAB PO SCH (09:01)
[2017-03-02] MEDS: ATORVASTATIN CALCIUM 20 MG TAB PO SCH (09:02)
[2017-03-02] MEDS: FAMOTIDINE 20 MG TAB PO SCH (09:02)
[2017-03-02] MEDS: ACET/CAFFEINE/BUTA FIORICET 1 EACH TAB PO PRN ×2 (09:16→16:06)
[2017-03-02] MEDS: CODEINE SULF 30 MG TAB PO PRN ×2 (10:00→16:07)
[2017-03-02 15:26] VITALS: BP 120/91; PULSE 88; RESP 16; TEMP 97.4; O2SAT 90
--- NOTE | 2017-03-02 16:28 | SOAPPROG ---
SOAP Progress Note Assessment/Plan: Assessment: post op day 1, s/p I and D lumbar spine wound L4-5. Staph Aureus. Sensitivities pending. Pt markedly improved. Cont iv abx. Once blood cx show negative, will obtain PICC line. Plan: 02/27/17 14:20 02/28/17 13:24 post op day 2, s/p I and D of L4-5 for deep wound infection. Pt continues to improve. Blood cultures negative and therefore, pt getting PICC line today. On Ancef. Plan: I will remove drain tomorrow and then probable discharge to home on 03/01/17 16:45 post op day 3 s/p I and D L4-5 wound for deep infection with Staph Aureus. PICC line in. Pt doing well. Plan: drain removed. Will examine wound tomorrow and if good, will d/c pt to home. 03/02/17 16:27 Post op day 4, s/p I and D R L4-5 wound infection;. On Ancef via Picc. Ready for discharge to home with home health care. Subjective: Pt states she is doing well. Wants to go home. Objective: Vital Signs Temp Pulse Resp BP Pulse Ox 36.3 C 88 16 120/91 H 90 L 03/02/17 15:23 03/02/17 15:23 03/02/17 15:23 03/02/17 15:23 03/02/17 15:23 Microbiology 02/26/17 10:15 Gram Stain - Final Back - Tissue 02/26/17 10:15 Gram Stain - Final Back - Eswab 02/26/17 10:15 Gram Stain - Final Back - Eswab 02/26/17 10:15 Mycobacterial Smear (AMRITA) - Final Back - Tissue 03/01/17 03/02/17 03/03/17 05:59 05:59 05:59 Intake Total 1800 450 Output Total 35 Balance 1765 450 BLE motor 08/20. David's negative x 2. Lumbar wound without any drainage. Erythema is only due to tape irritation. No purulence. ICD10 Worksheet Patient Problems: Problems Problem Status Onset lumbar wound infection Acute
--- NOTE | 2017-03-02 16:54 | ASMTCMCOM ---
CM Note CM Note Notes: Pt medically stable for d/c w [facility] and [facility]. Orders and picc line placement sent to [facility] in [employer]. Kimberly with [facility] will coordinate with [facility] for RN this evening to connect pt to continuous antibiotics. Date Signed: 03/02/2017 04:54 PM Electronically Signed By:ARTURO Murry
--- NOTE | 2017-03-02 17:02 | GDS ---
[f rep st] DISCHARGE SUMMARY HISTORY AND HOSPITAL COURSE: The patient is a pleasant 61-year-old woman who is 2 weeks after a righ t L4-5 synovial facet joint cyst excision with hemilaminectomy on the right at L4. She had done very well, but then called me after hours stating she was having drainage and increased pain in her lumba r wound. She was seen and admitted to the hospital and underwent an incision, irrigation, debridement of poste rior lumbar wound at L4-5. The findings at time of surgery included about 75 mL of gross purulence, both superficial and deep to the lumbar fascial layer. There was no evidence of epidural abscess or bone infection. Cultures taken grew Staphylococcus aureus, sensitive to multiple antibiotics includi ng vancomycin and Ancef. Infectious Disease was consulted and blood cultures had been obtained and u ltimately were negative. They recommended a PICC line and 4-6 weeks of IV antibiotics. They changed her from vancomycin to Ancef IV. She was getting 2 g every 8 hours. She had a PICC line. Her wound improved markedly over the course of her hospital stay and the KAROLYN drain was removed 1 day p rior to discharge. There was no reaccumulation of drainage or purulence and her wound was only eryth ematous along the edges of where the tape met her skin due to irritation, but not due to infection. The patient tolerated physical therapy and occupational therapy and became independent in both. She tolerated a regular diet. Her drain had been removed, as mentioned, without difficulty. Of note, he r preoperative right lower extremity pain remained fully resolved and she was pleased with that. DISPOSITION: The patient is being discharged home and per the Infectious Disease recommendation, dinah l receive home IV Ancef for 4-6 weeks and has a followup appointment next Tuesday with the Infectious Disease group. The patient knows to have a daily dry dressing change and her is capable of that. She needs to ambulate, with no bending, lifting, or twisting. She needs to wear a back brace at all times except during showers. She is to call my office immediately or go to the nearest emerge ncy room if she has any concerns about possible other complication. Overall, she has done very well. /[id number]/MODL
--- NOTE | 2017-03-03 09:48 | ASDISCHSUM ---
Discharge Information Plan Status:Home with Home Health Medically Cleared to Leave: Discharge Date:03/02/2017 06:30 PM D/C Disposition:Home Health Service ADT D/C Disposition:Home Health Service Projected Discharge Date:03/02/2017 11:00 AM Transportation at D/C: Discharge Delay Reason: Follow-Up Date:03/02/2017 11:00 AM Discharge Slot: Final Diagnosis: Placement Information Referral Type:Home Infusion Referral ID:[id number] Provider Name:[facility] Address 1:[address] Address 2: City:[place] Selection Factors: State:[place] Referral Type:*Home Health Care Services Referral ID:[id number] Provider Name:[facility] Address 1:[address] , [address] Address 2: City:[place] Selection Factors: State:[place] Patient Contact Information Contact Name:WILLIAN Relationship:Other Address: Home Phone: Work Phone: City: [facility] Phone: [facility]/Zip Code: Email: Financial Information Financial Class:HMO and PPO Plans Primary Plan Desc:[employer] Primary Plan Number:[id number] Secondary Plan Desc: Secondary Plan Number: Assessment Information [facility] CM Progress Note CM Note CM Note Notes: Chart reviewed. Pt s/p lumbar surgery and developed infection. Therapies pending. Needs to be detrmined. Date Signed: 02/27/2017 09:59 AM Electronically Signed By:Shannon Arteaga RN [facility] CM Progress Note CM Note CM Note Notes: Chart reviewed. Per ID patient will need prison ANTB. Met with patient to review dc POC. Address and phone number confirmed. Referral to [facility]. Will refer to [facility] for home health nurse. Plan home with home infusion and HHC when medically cleared for discharge. CM to follow. Date Signed: 02/28/2017 10:01 AM Electronically Signed By:Shannon Arteaga RN [facility] CM Progress Note CM Note CM Note Notes: Updates to infusion and HHC. Picc placed. Plan is to dc tomorrow if medically stable with home infusion and [facility] RN. CM to follow. Date Signed: 03/01/2017 10:12 AM Electronically Signed By:Shannon Arteaga RN [facility] CM Progress Note CM Note CM Note Notes: Pt medically stable for d/c w [facility] and [facility]. Orders and picc line placement sent to [facility] in [employer]. Kimberly with [facility] will coordinate with [facility] for RN this evening to connect pt to continuous antibiotics. Date Signed: 03/02/2017 04:54 PM Electronically Signed By:ARTURO Murry Intervention Information
--- NOTE | 2017-03-07 15:05 | PQFORM ---
PHYSICIAN QUERY FORM Needs Your Response This query form is being sent to you to assure this patient record is coded properly. 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 Erickson, For coding purposes (there is a different code choice for excisional versus non excisional debridement)- please clarify if the debridement done on 26 Feb 2017 was: ___~ Excisional ___~ Non Excisional ___~ Other Thank You Kimi Tejada NURSING SURGICAL SERVICES DIRECTOR [facility]/Coding Dept. [phone] INSTRUCTIONS FOR RESPONSE: Answer question by clicking on the "Edit Document" button. Move cursor to area below the stars. When complete, hit "Save." Click on the "Sign" button, then click "Sign" again. Type in your PIN and hit "Enter." MTDD
== END 2017-03-02 18:30 | disposition home health service (06) | DRG 863 ==
LOC: F3N 12:31
PROVIDERS: ADMIT Orthopaedic Surgery Orthopaedic Surgery of the Spine; ATTEND Orthopaedic Surgery Orthopaedic Surgery of the Spine
PROC: 0J9700Z Drainage of Back Subcutaneous Tissue and Fascia with Drainage Device, Open Approach (ICD-10-PCS; principal; 2017-02-26 09:00)
PROC: 02HV33Z Insertion of Infusion Device into Superior Vena Cava, Percutaneous Approach (ICD-10-PCS; 2017-02-28)
DX: T81.4XXA Infection following a procedure, initial encounter (principal); B95.8 Unspecified staphylococcus as the cause of diseases classified elsewhere; E78.00 Pure hypercholesterolemia, unspecified; G43.909 Migraine, unspecified, not intractable, without status migrainosus; F41.9 Anxiety disorder, unspecified; G47.30 Sleep apnea, unspecified; E66.9 Obesity, unspecified
CPT/HCPCS: 96374; 97161-GP; C1751; J0330; J0690; J1100; J1170; J1885; J2250; J2370; J2405; J2704; J3010; J3370